=== PATIENT | male | born 1930 | race Caucasian/White ===

== ENCOUNTER 2017-02-04 12:42 | Inpatient (IN) | payer MEDICARE, OTHER ==
--- NOTE | ~2017-02-04 | DS ---
Discharge Summary [address] [place]. [address] NAME: ANITA FITZPATRICK : 30 STATUS : DIS IN PAT#: [id number] AGE: 86 ADM/REG DATE : 02/04/17 MR#: [id number] REPORT SERV DATE: 02/08/17 DICTATED BY: DATE: REPORT STATUS : Draft TRANSCRIBED BY: MODL DATE: 02/07/17 ADMISSION DATE: 02/04/2017 DISCHARGE DATE: 02/07/2017 DISCHARGE DIAGNOSES: 1. Neutropenic fever, resolved. 2. Urinary tract infection Escherichia coli. 3. Chronic nausea. 4. Chronic kidney disease, stage 3. 5. Abnormal chest x-ray. 6. Pancytopenia. 7. Large cell lymphoma. 8. Poor appetite. CONSULTATIONS: Jorge L Rowland M.D., [facility]. PERTINENT TESTS AND PROCEDURES: 1. Chest x-ray, 02/04/2017. Impression: Heart borderline in size. Peripheral infiltrate in the right upper lobe. Left lung clear. Torturous thoracic aorta. Pulmonary vessels normal. Impression: Acute infiltrate involving right lung. 2. Chest x-ray, 02/07/2017. Impression: Mild improvement in patchy consolidation, periphery of the right mid lung. Mild bibasilar atelectasis. Trace right pleural effusion expected. 3. Blood cultures x2 sites obtained on 02/04/2017, final result: One positive blood culture of two collected. Growth of Staph species ag negative, probable contamination. No sensitivity performed. 4. Urinalysis, urine collected on 02/04/2017. Result: Small leukocyte vinay, 1 red blood cell, 29 white blood cells, less than 1 epithelial squamous cell, rare bacteria. Urine culture, final result: Greater than 100,000 colonies of E. coli. 5. Hemoccult negative. CHIEF COMPLAINT UPON ADMISSION: Fever, nausea, and malaise. HOSPITAL COURSE: Please refer to history and physical dated 02/04/[address] Singh Valle for details pertaining to the patient's initial presentation upon admission and health history. The patient is an 86-year-old male, who is under the outpatient care of Dr. Mccord at [facility] for management of large cell lymphoma. The patient presented to the [facility] on 02/04/2017 for blood transfusion. Prior to transfusion the patient was noted to have a fever of 101 degrees Fahrenheit. Oncology was notified and the patient was referred to [facility] for direct admission. The patient was admitted for neutropenic fever of uncertain etiology, and acute on chronic anemia with history of pancytopenia requiring routine transfusion. 1. Neutropenic fever. Diagnostic workup included urinalysis and reflex culture which Discharge Summary [address] [place]. [address] NAME: ANITA FITZPATRICK : 30 STATUS : DIS IN PAT#: [id number] AGE: 86 ADM/REG DATE : 02/04/17 MR#: [id number] REPORT SERV DATE: 02/08/17 DICTATED BY: DATE: REPORT STATUS : Draft TRANSCRIBED BY: MODL DATE: 02/07/17 indicated UTI greater than 100,000 colonies of E. coli. The patient also had an abnormal chest x-ray that indicated an acute infiltrate right upper lobe. The patient was started on cefepime upon admission and then transitioned to cefadroxil 500 mg p.o. twice daily to treat urinary tract infection. The patient has remained afebrile since 02/04/2017. Absolute neutrophil count is now 550. The patient will continue cefadroxil 500 mg p.o. twice daily through 02/14/2017 to complete total 10-day antibiotic therapy. 2. Urinary tract infection. The patient have chronic urinary frequencies secondary to history of prostate cancer. The patient has denied dysuria or hematuria throughout admission. The patient will continue cefadroxil x8 days to complete a total 10-day course of antibiotic therapy. The patient was instructed on signs and symptoms of C. diff diarrhea and was educated to contact his provider immediately for any signs or symptoms of inability to tolerate antibiotics. 3. Abnormal chest x-ray. Upon admission, the patient's chest x-ray indicated acute infiltrate right upper lobe. The patient's procalcitonin was normal at 0.14 and the patient had no complaints of cough, wheeze, or shortness of breath. The patient recalls a choking incident while taking medications two to three weeks ago. Repeat x- ray on day of discharge reported mild improvement in patchy consolidation periphery of right mid lung. Antibiotic coverage was not extended to cover infiltrate as the patient is completely asymptomatic and chest x-ray shows improvement. 4. Chronic nausea, exact etiology is unclear. The patient has suffered from chronic nausea that is worse in the a.m. for over one month. H. pylori stool test is pending. The results should be available in approximately 48 hours. JEANNIE Duarte's office was alerted to watch for H. pylori test results. The patient has followup with Dr. Polanco in the morning. Home Zofran was increased from q.12 hours to q.6 hours p.r.n. 5. Chronic kidney disease, stage 3. The patient has mild metabolic acidosis and received sodium bicarb p.o. during this admission. Baseline creatinine is between 1.9 and 2.0. Yesterday, there was a very mild increase in creatinine to 2.03. The patient responded well to 500 mL normal saline at 125 mL/h x1 dose. 6. Pancytopenia, this is secondary to large cell lymphoma. The patient is transfusion dependent. Upon admission, the patient's hemoglobin was found to be 5.8, status post transfusion hemoglobin has continued to trend upward and is 8.5 on day of discharge. The patient will continue to follow with Dr. Mccord for routine transfusions. 7. Large cell lymphoma. The patient received supportive care only to include routine transfusions. Follow up with Dr. Cristino Mccord. 8. Poor appetite, this is likely secondary to chronic nausea that has been present for over one month. The patient is to follow up with JEANNIE Duarte, tomorrow. Oncology placed the patient on trial of steroid, prednisone 5 mg every a.m. as appetite stimulant. The patient will continue this medication for one week and follow up with Dr. Mccord. DISCHARGE CONDITION: At the time of discharge, the patient is hemodynamically stable. DISCHARGE DIET: Low-sodium 4 g diet. DISCHARGE MEDICATIONS: 1. Halfprin 81 mg tablet p.o. daily. Discharge Summary [address] [address] NAME: ANITA FITZPATRICK : 30 STATUS : DIS IN PAT#: [id number] AGE: 86 ADM/REG DATE : 02/04/17 MR#: [id number] REPORT SERV DATE: 02/08/17 DICTATED BY: DATE: REPORT STATUS : Draft TRANSCRIBED BY: MODL DATE: 02/07/17 2. Tums 500 mg tablet two tablets p.o. at bedtime. 3. Cefadroxil 500 mg tablet p.o. twice daily to treat UTI E. coli. The patient was instructed to monitor closely for signs and symptoms of C. diff diarrhea. 4. Cardizem 30 mg tablet p.o. daily at 0900 hours, 1600 hours, and 2100 hours. 5. Lexapro 20 mg tablet p.o. every morning. 6. Pepcid 20 mg tablet p.o. twice daily. 7. Protonix 40 mg tablet p.o. with breakfast. The patient was educated to discuss medication with GI doctor to see if it could possibly be contributing to chronic nausea. 8. Flomax 0.4 mg tablet p.o. daily. 9. Valtrex 500 mg tablet p.o. daily at 0900 hours and 1700 hours. 10.Ambien 5 mg tablet p.o. at bedtime. 11.Deltasone 5 mg tablet p.o. daily with breakfast x1 week. 12.Tylenol 325 mg tablet p.o. every 4 hours as needed. 13.Colace 100 mg tablet p.o. twice daily as needed. 14.Imodium 2 mg caplet, 4 mg every 8 hours as needed for diarrhea. 15.Zofran 4 mg to 8 mg p.o. every 6 hours as needed. 16.Phenergan 25 mg tablet every 6 hours as needed. Hold for sedation. 17.Senokot two tablets p.o. daily at bedtime as needed. 18.Ultram 50 mg tablet p.o. every 6 hours as needed. 19.Super B complex one tablet p.o. daily. 20.Melatonin 5 mg p.o. daily. 21.MiraLAX 17 g p.o. daily. Hold for diarrhea. DISCHARGE INSTRUCTIONS: 1. Follow up with Dr. Cristino Mccord on 02/15/2017. 2. Follow up with Dr. Polanco GI, on 02/08/2017. The patient was educated to monitor for signs and symptoms of diarrhea while on antibiotic and to report any change in stool to provider immediately. The patient was also instructed to return to the emergency department for any acute onset of fever 100.4 degrees Fahrenheit or greater lasting more than one hour, intractable nausea with uncontrolled vomiting, acute onset of uncontrolled diarrhea, or any other concerns that are deviations from his baseline health status at the time of this discharge. PRIMARY CARE PROVIDER: Gui Tyler, physician actuarial assistant at [facility]. PRIMARY ONCOLOGIST: Cristino Mccord M.D. PRIMARY LAMP DECORATOR: Singh Polanco M.D. [facility]/ROSHNI Macie Bailey Discharge Summary [address] [address] NAME: ANITA FITZPATRICK : 30 STATUS : DIS IN PAT#: [id number] AGE: 86 ADM/REG DATE : 02/04/17 MR#: [id number] REPORT SERV DATE: 02/08/17 DICTATED BY: DATE: REPORT STATUS : Draft TRANSCRIBED BY: ROSHNI DATE: 02/07/17 ANGELICA Ferrer / [id number] CC: MD Gui Del Cid II, Pura Hector IV, M.D.
[~2017-02-04 12:42] MED LIST: AMB5 PO; ANDERSON PO; ASAB PO; B121000P IM; BIST PO; CARD30 PO; CARD60 PO; CARDU4 PO; CELEXA20 PO; DSS PO; DURICEF PO; FISH-EPA1000 MG PO; FLOMAX4 PO; FLORASTOR250 MG PO; HALF81 PO; HYDROCORT2.5 % EX; KLOR-CON M1010 MEQ PO; L-LYSINE500 M1 PO; L20 PO; L40 PO; LEXAPRO20 PO; MAGIC MOUTH WASH PO; MAGNESIUM PO; MELATONIN5 M1 PO; MINOCIN100 PO; MIRALAXPKT PO; MTX2.5 PO; P10 PO; PEP20 PO; PEPTO BISMOL262 MG PO; PR25 PO; PRAVAC PO; PRAVACHOL40 MG PO; PRILO PO; PROBIOTIC PO; PROTONIX PO; REM15 PO; SUPER B COMP PO; T PO; TUMSROLL PO; ULTRAM50 PO; VALTREX5 PO; VITAMIN B-121000 MC1 SL; VYTORIN 10/40 T1 TAB PO; XANAX XR1 MG PO; ZESTORETIC1 TA1 PO; ZINC LOZENGES MT; ZOCOR40 PO; ZOFRANODT8 PO
[2017-02-05 06:23] LABS: BASOPHILS 0 %; EOSINOPHILS 0 %; HEMATOCRIT 21.5 % (40.0-51.0); HEMOGLOBIN 7.6 g/dL (13.6-17.8); LYMPHOCYTES 47.5 %; LYMPHOCYTES ABSOLUTE 1.55 10/3/uL (0.67-4.30); MEAN CORPUS HGB CONC 35.3 g/dL (32.0-36.0); MEAN CORPUSCULAR HEMOGLOB 32.1 pg (26.0-34.0); MEAN CORPUSCULAR VOLUME 90.7 fL (80-100); MEAN PLATELET VOLUME 9.2 fL (9.2-13.0); MONOCYTES 13.2 %; MONOCYTES ABSOLUTE 0.43 10/3/uL (0.21-1.20); NEUTROPHILS 39.3 %; NEUTROPHILS ABSOLUTE 1.28 10/3/uL (2.02-8.40); PLATELET COUNT 148 10/3/uL (150-400); RED CELL COUNT 2.37 10/6/uL (4.7-6.1); WHITE BLOOD CELLS 3.3 10/3/uL (4.5-10.5)
[2017-02-05 06:31] LABS: MANUAL DIFF NO %
[2017-02-05 06:31] LABS: BUN (BLOOD UREA NITROGEN) 34 MG/DL (6-23); CALCIUM, SERUM 7.7 MG/DL (8.5-10.4); CHLORIDE, SERUM 113 MMOL/L (96-112); CO2 (CARBON DIOXIDE) 19 MMOL/L (24-34); CREATININE 1.96 MG/DL (0.70-1.30); GFR AFRICAN AMERICAN 35 ML/MIN (>=60); GFR NON AFRICAN AMERICAN 30 ML/MIN (>=60); GLUCOSE, SERUM 109 MG/DL (60-99); POTASSIUM, SERUM 3.9 MMOL/L (3.5-5.3); SODIUM, SERUM 142 MMOL/L (135-148)
[2017-02-06 06:20] LABS: HEMATOCRIT 23.5 % (40.0-51.0); HEMOGLOBIN 8.3 g/dL (13.6-17.8); MEAN CORPUS HGB CONC 35.3 g/dL (32.0-36.0); MEAN CORPUSCULAR VOLUME 90.7 fL (80-100); MEAN PLATELET VOLUME 9.2 fL (9.2-13.0); PLATELET COUNT 139 10/3/uL (150-400); RBC DISTRIBUTION WIDTH 21.6 % (12.0-16.0); RED CELL COUNT 2.59 10/6/uL (4.7-6.1); WHITE BLOOD CELLS 2.6 10/3/uL (4.5-10.5)
[2017-02-06 06:23] LABS: MANUAL DIFF YES %
[2017-02-06 06:34] LABS: BUN (BLOOD UREA NITROGEN) 38 MG/DL (6-23); CALCIUM, SERUM 7.6 MG/DL (8.5-10.4); CHLORIDE, SERUM 113 MMOL/L (96-112); CO2 (CARBON DIOXIDE) 20 MMOL/L (24-34); CREATININE 2.03 MG/DL (0.70-1.30); GFR AFRICAN AMERICAN 33 ML/MIN (>=60); GFR NON AFRICAN AMERICAN 29 ML/MIN (>=60); POTASSIUM, SERUM 4.1 MMOL/L (3.5-5.3); SODIUM, SERUM 143 MMOL/L (135-148)
[2017-02-06 06:35] LABS: GLUCOSE, SERUM 84 MG/DL (60-99)
[2017-02-06 06:48] LABS: ANISOCYTOSIS 1+ (5-10/OIF) (0-5/OIF); LYMPHOCYTES 59 %; LYMPHOCYTES ABSOLUTE (CALC) 1.53 10/3/uL (0.67-4.30); MONOCYTES 12 %; MONOCYTES ABSOLUTE (CALC) 0.31 10/3/uL (0.21-1.20); NEUTROPHILS ABSOLUTE (CALC) 0.75 10/3/uL (2.02-8.40); PLATELET ESTIMATE SLT DEC (ADEQUATE); SEGMENTED NEUTROPHIL (0) 29 %; TOTAL NUCLEATED CELLS 100
[2017-02-07 07:05] LABS: HEMATOCRIT 25.1 % (40.0-51.0); HEMOGLOBIN 8.5 g/dL (13.6-17.8); MEAN CORPUS HGB CONC 33.9 g/dL (32.0-36.0); MEAN CORPUSCULAR HEMOGLOB 31.4 pg (26.0-34.0); MEAN CORPUSCULAR VOLUME 92.6 fL (80-100); PLATELET COUNT 155 10/3/uL (150-400); RBC DISTRIBUTION WIDTH 21.5 % (12.0-16.0); RED CELL COUNT 2.71 10/6/uL (4.7-6.1)
[2017-02-07 07:08] LABS: WHITE BLOOD CELLS 2.4 10/3/uL (4.5-10.5)
[2017-02-07 07:09] LABS: MANUAL DIFF YES %
[2017-02-07 07:17] LABS: BUN (BLOOD UREA NITROGEN) 35 MG/DL (6-23); CALCIUM, SERUM 8.1 MG/DL (8.5-10.4); CHLORIDE, SERUM 115 MMOL/L (96-112); CO2 (CARBON DIOXIDE) 21 MMOL/L (24-34); CREATININE 1.83 MG/DL (0.70-1.30); GFR AFRICAN AMERICAN 38 ML/MIN (>=60); GFR NON AFRICAN AMERICAN 33 ML/MIN (>=60); GLUCOSE, SERUM 86 MG/DL (60-99); POTASSIUM, SERUM 4.4 MMOL/L (3.5-5.3); SODIUM, SERUM 144 MMOL/L (135-148)
[2017-02-07 07:37] LABS: BAND NEUTROPHILS 6 %; BASOPHILS 1 %; BASOPHILS ABSOLUTE (CALC) 0.02 10/3/uL (0.0-0.16); LYMPHOCYTES 72 %; LYMPHOCYTES ABSOLUTE (CALC) 1.73 10/3/uL (0.67-4.30); MONOCYTES 4 %; NEUTROPHILS ABSOLUTE (CALC) 0.55 10/3/uL (2.02-8.40); PLATELET ESTIMATE ADQ (ADEQUATE); SEGMENTED NEUTROPHIL (0) 17 %; TOTAL NUCLEATED CELLS 100
[2017-02-07 07:38] LABS: ANISOCYTOSIS 1+ (5-10/OIF) (0-5/OIF); MACROCYTES 1+ (5-10/OIF) (0-5/OIF)
[2017-02-07] MEDS ORDERED: MIRALAX POWDER1 PKT PO (15:45)
[2017-02-07] MEDS ORDERED: P5 PO (15:46)
[2017-02-07] MEDS ORDERED: CEFACLOR ER500 MG PO (15:46)
== END 2017-02-07 16:06 | disposition home or self-care (01) | DRG 690 ==
LOC: 4EA 12:42
PROVIDERS: Internal Medicine; Nurse Practitioner Family
PROC: 30233N1 Transfusion of Nonautologous Red Blood Cells into Peripheral Vein, Percutaneous Approach (ICD-10-PCS; 2017-02-03)
PROC: 30233N1 Transfusion of Nonautologous Red Blood Cells into Peripheral Vein, Percutaneous Approach (ICD-10-PCS; principal; 2017-02-04)
DX: N39.0 Urinary tract infection, site not specified (principal); E87.2 Acidosis; C91.Z0 Other lymphoid leukemia not having achieved remission; D70.9 Neutropenia, unspecified; N18.3 Chronic kidney disease, stage 3 (moderate); B96.20 Unspecified Escherichia coli [E. coli] as the cause of diseases classified elsewhere; D63.1 Anemia in chronic kidney disease; Z51.5 Encounter for palliative care; N40.0 Benign prostatic hyperplasia without lower urinary tract symptoms; F32.9 Major depressive disorder, single episode, unspecified; F41.9 Anxiety disorder, unspecified; I12.9 Hypertensive chronic kidney disease with stage 1 through stage 4 chronic kidney disease, or unspecified chronic kidney disease; F17.210 Nicotine dependence, cigarettes, uncomplicated; Z79.82 Long term (current) use of aspirin
CPT/HCPCS: 36415; 36430; 71010; 80048; 80053; 81001; 82272; 83615; 83735; 84145; 85025; 85610; 85730; 86850; 86900; 86901; 86920; 87040; 87077; 87086; 87186; 87338; 87493; 87493-59; 96367; 96375; 99284; A9270-GY; G0378; J0692; J0895; J1940; J2405; P9040

== ENCOUNTER 2017-02-20 20:34 | Inpatient (IN) | payer MEDICARE, OTHER ==
--- NOTE | ~2017-02-20 | DS ---
Discharge Summary [id number] [place]. [address] NAME: ANITA FITZPATRICK : 30 STATUS : DIS IN PAT#: [id number] AGE: 86 ADM/REG DATE : 02/21/17 MR#: [id number] REPORT SERV DATE: 02/25/17 DICTATED BY: JR. GARCIA WILLIAM JOHN DATE: 02/24/17 REPORT STATUS : Draft TRANSCRIBED BY: MODBenja DATE: 02/24/17 ADMISSION DATE: 02/21/2017 DISCHARGE DATE: 02/24/2017 DISCHARGE DIAGNOSES: 1. Mild hypernatremia. 2. Intermittent bradycardia, evaluated by Cardiology. 3. Acute on chronic symptomatic anemia. 4. Hyperkalemia. 5. Hypokalemia. 6. Acute kidney injury. 7. Chronic kidney disease, stage III. 8. Large cell lymphoma. 9. Chronic transfusion-dependent pancytopenia. 10.Chronic steroid use. 11.Neutropenia. OPERATIONS/PROCEDURES AND TREATMENTS: Include: 1. Chest x-ray done 02/20/2017 which showed continued opacity in peripheral aspect of the right lung with bibasilar atelectasis. 2. Echocardiogram done 02/22/2017 which showed normal left ventricular systolic function with ejection fraction of 55% with severe diastolic dysfunction and right ventricle which was mildly enlarged with mildly decreased systolic function. There was mild mitral and aortic regurgitation and a dilated left atrium. 3. Blood cultures x2 done 02/20/2017 were sterile. 4. Occult blood done 02/21/2017 was negative. DISCHARGE MEDICATIONS: Include: 1. Aspirin 81 mg orally daily. 2. Calcium carbonate 1000 mg orally at bedtime. 3. Lexapro 20 mg orally daily. 4. Pepcid 20 mg orally daily. 5. Prednisone 5 mg orally before breakfast. 6. Melatonin 5 mg orally daily. 7. Remeron 45 mg orally daily. 8. Protonix 40 mg orally daily. 9. Flomax 0.4 mg orally daily. 10.Ambien 5 mg orally at bedtime. 11.Vitamin B complex daily. 12.Tylenol 325 q.4h p.r.n. 13.Colace as needed. 14.[place] 5/325 q.8 hours p.r.n. 15.Zofran 4 mg as needed. 16.Pepto-Bismol as needed. 17.Tramadol 50 q.6h p.r.n. 18.Hydrocortisone 20 mg orally twice a day for two days, then daily for two days, then Discharge Summary [address] [address] NAME: ANITA FITZPATRICK : 30 STATUS : DIS IN PAT#: [id number] AGE: 86 ADM/REG DATE : 02/21/17 MR#: [id number] REPORT SERV DATE: 02/25/17 DICTATED BY: JR. GARCIA WILLIAM JOHN DATE: 02/24/17 REPORT STATUS : Draft TRANSCRIBED BY: ROSHNI DATE: 02/24/17 every other day for four days. HOSPITAL COURSE: The patient was an 86-year-old white male with a history of large-cell lymphoma, followed by Dr. Mccord, currently not on treatment who presented to the emergency room on 02/20/2017 with complaint of chills and nausea. The patient had recently been admitted to the Hospitalist Service at that time. He had neutropenic fever, was found to have Escherichia coli, urinary tract infection, also required blood transfusion for symptomatic anemia. He was discharged on cefadroxil and remained in his usual state of health until the afternoon of presentation when he experienced acute onset of chills with nausea for a few hours. For complete details of the admission history, please see Dr. Clark's quite excellent dictated history and physical. On initial exam, his temperature was 98.5, heart rate 78, respiratory rate of 18, and blood pressure is 117/42. Exam was largely unremarkable. Laboratory showed white count of 2.8, hemoglobin 6.5, platelets 188 with an absolute neutrophil count of 1260. His potassium was elevated at 6.3, BUN was 37, creatinine was 1.8. Lactic acid was 0.6. Urinalysis had no pyuria. Initial EKG showed right bundle branch block without evidence of acute T-wave or QRS lengthening. The patient was admitted to the hospital for hyperkalemia, anemia, and bradycardia. Regarding the patient's acute symptomatic anemia, he was transfused with a total of 4 units of packed red blood cells. The patient carries a history of large cell lymphoma with chronic pancytopenia, which is transfusion dependent. There was no obvious bleeding. He did have occult blood that was negative and the patient was followed by Dr. Mccord during the hospitalization. No further workup regarding the anemia was undertaken. Regarding the patient's intermittent bradycardia, initially patient had heart rate down into the 30s and 40s. At that time, he was on diltiazem and had hyperkalemia. The potassium was actually overcorrected, at which point, he had hypokalemia, and the patient continued to have intermittent bradycardia with 2 to 3 second pauses. He was evaluated by Cardiology. He had an echocardiogram, which is detailed above. He was initially felt to be a pacemaker candidate; however, with control of his potassium level as well as off rate controlling medicines, his bradycardia was significantly better and was completely asymptomatic and it was felt the patient would not get a pacemaker at that time. Regarding the hyper and hypokalemia, the patient got Kayexalate when his potassium was high and he got potassium when it was low with good result. Regarding concern for infection, the patient never had convincing evidence of infection other than symptomatic. He was initially placed on cefepime. This was discontinued, and he had no evidence of infection. Regarding the patient's steroid dependency, he was placed on stress dose steroids. This was weaned down. He will continue an oral taper at discharge. Discharge Summary [id number] [place]. [address] NAME: ANITA FITZPATRICK : 30 STATUS : DIS IN PAT#: [id number] AGE: 86 ADM/REG DATE : 02/21/17 MR#: [id number] REPORT SERV DATE: 02/25/17 DICTATED BY: JR. GARCIA WILLIAM JOHN DATE: 02/24/17 REPORT STATUS : Draft TRANSCRIBED BY: ROSHNI DATE: 02/24/17 The patient will be discharged home today 02/24/2017 in good condition. He will follow up with his primary care provider, Dr. Gui Tyler, in one to two weeks. We will follow up with Dr. Mccord of [facility] at the next available appointment. DISCHARGE DIET: Will be a renal diet. ACTIVITY: As tolerated. For discharge exam and laboratory, please see daily progress note. This discharge took 38 minutes for patient encounter, coordination of care, and documentation. VERNA/ROSHNI Isidoro Garcia Jr, MD / [id number] CC: Isidoro Garcia Jr, MD Gregory Joyner
--- NOTE | ~2017-02-20 | CN ---
Consultation Report [facility] [address] [place]. [address] NAME: ANITA SALMON : 30 STATUS : ADM IN PAT#: [id number] AGE: 86 ADM/REG DATE : 02/21/17 MR#: [id number] REPORT SERV DATE: 02/23/17 DICTATED BY: GUI RUIZ DATE: 02/23/17 REPORT STATUS : Draft TRANSCRIBED BY: MODL DATE: 02/23/17 ELECTROPHYSIOLOGY CONSULTATION DATE OF CONSULTATION: INDICATIONS: Consider pacemaker. HISTORY OF PRESENT ILLNESS: Anita Salmon is an 86-year-old man with large cell lymphoma, not undergoing treatment. He is followed by Dr. Cristino Mccord. He was admitted with nausea, vomiting, and fevers. He has neutropenia. On presentation, he did have some sinus bradycardia with heart rates to around 30 beats per minute. He also had an elevation of his potassium at 6.3 and had been receiving diltiazem. Electrophysiology is consulted to consider a pacemaker placement. The patient has had stabilization of his heart rates over the last 12 hours or so after his potassium has come down and his diltiazem is washing out of his system. Heart rates are currently in the low 50s. On questioning, he denies lightheadedness, dizziness, syncope or presyncope, and has no other obvious focal complaints. He has some ongoing malaise, which likely may well be related to his underlying medical illnesses. PAST MEDICAL HISTORY: Large cell lymphoma, chronic pancytopenia, chronic kidney disease, prostate cancer, coronary artery disease, hypertension, reflux disease, depression and anxiety. PRESENT MEDICATIONS: Aspirin, calcium, Maxipime, Lexapro, Pepcid, subcu heparin, Solu- Cortef, melatonin, Remeron, Protonix, Flomax, Stresstabs, and Ambien. ALLERGIES: ANTIHISTAMINES. SOCIAL HISTORY: No tobacco. No alcohol. FAMILY HISTORY: Notable for some cardiac disease. REVIEW OF SYSTEMS: As per the HPI. Otherwise, all other review of systems negative. PHYSICAL EXAMINATION: VITAL SIGNS: Blood pressure of 151/71, pulse is 58, respiratory rate is 18, temperature 98.2. GENERAL: Appears stated age, no distress. EYES: Sclerae anicteric. No arcus senilis. MOUTH: Oral mucosa moist, lips acyanotic. NECK: Jugular venous pressure normal. No carotid bruits. LUNGS: Clear to auscultation bilaterally, normal inspiratory effort. CARDIAC: Irregular rhythm with a 2/6 systolic ejection murmur. Consultation Report [address] [place]. [address] NAME: ANITA SALMON : 30 STATUS : ADM IN [facility]#: [id number] AGE: 86 ADM/REG DATE : 02/21/17 MR#: [id number] REPORT SERV DATE: 02/23/17 DICTATED BY: GUI RUIZ DATE: 02/23/17 REPORT STATUS : Draft TRANSCRIBED BY: ROSHNI DATE: 02/23/17 ABDOMEN: Soft, nondistended, nontender. EXTREMITIES: No edema. SKIN: Warm and dry. NEURO/PSYCH: Alert and oriented, nonfocal, mood appropriate. DATA: Telemetry is currently sinus rhythm. ECG from 2 a.m. yesterday morning is sinus bradycardia, 38 beats per minute with a right bundle-branch block, conduction pattern. Potassium today 3.3, it was 6.3 on presentation. Creatinine 1.5. White count is 8. Troponin negative. IMPRESSIONS: Sinus node dysfunction in the context of treatment with diltiazem and abnormal potassium. Rates overall, on my review of the telemetry strips, appear to be improved. He has no history of syncope or presyncope. He has an abnormal procalcitonin and a low white count, and he is clearly of increased risk for infection related to invasive procedures. Overall, it appears the patient's rates are better. I would recommend observant management at the present time and hopefully avoid the pacemaker in this gentleman unless it is absolutely required. EM/ROSHNI Gui Ruiz M.D. / [id number] CC: Isidoro Garcia Jr, MD Gregory Joyner, NP
--- NOTE | ~2017-02-20 | HP ---
History And Physical [place] [id number] [facility] [place]. [address] NAME: ANITA [place] : 30 STATUS : ADM Noemi PAT#: [id number] AGE: 86 ADM/REG DATE : 02/20/17 MR#: [id number] REPORT SERV DATE: 02/21/17 DICTATED BY: JORGE DE OLIVEIRA DATE: 02/21/17 REPORT STATUS : Draft TRANSCRIBED BY: MODBenja DATE: 02/21/17 DATE OF ADMISSION: 02/20/2017 POINT OF ENTRY: [facility] Emergency Department. PRIMARY ONCOLOGIST/CONTRACT AGENT: Cristino Mccord M.D. CHIEF COMPLAINT: Chills and nausea. HISTORY OF PRESENT ILLNESS: Mr. 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 The patient was recently admitted to the Hospitalist Service in late January for neutropenic fever and found at that time to have evidence of an E coli urinary tract infection. He also required a blood transfusion at that time for symptomatic anemia. He was discharged on extended course of cefadroxil to treat his E coli urinary tract infection. According to pharmacy review of the medication administration records it appears the patient has been on his cefadroxil for few days longer than actually was prescribed. The patient states he was feeling well in his usual state of health until sometime this afternoon shortly after lunch when he experienced the acute onset of chills and some nausea. The patient states that his chills continued on for quite a few hours. He states that his temperature at that time was measured to be 99.0 degrees Fahrenheit. He otherwise denied any chest pain, palpitations, shortness of breath, cough, sputum production, abdominal pain, diarrhea, constipation, dysuria, melena, hematochezia, or hemoptysis. He does state some chronic lower extremity edema as well as the above-mentioned nausea as well as frequent urination which is unchanged which he blames on his history of prostate cancer and BPH. Initial evaluation in the emergency department notable for stable vital signs. Temperature was 98.5 degrees Fahrenheit. White count was noted to be 2800. ANC was almost 1300. Labs were otherwise notable for potassium of 6.2 with a bicarb of 22. Urinalysis did have positive nitrites and 5 white blood cells per high field. He was started on some IV fluids as well as 2 g of IV cefepime for presumed neutropenic fever. Hemoglobin was also noted to be 6.5, and an order for 2 unit blood transfusion was placed. PREVIOUS MEDICAL HISTORY: 1. 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 2. 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 3. Chronic kidney disease, stage 3, baseline creatinine approximately 1.8 to 2.0. 4. History of prostate cancer status post hormonal treatment. 5. Coronary artery disease. 6. Hypertension. 7. Gastroesophageal reflux disease. History And Physical [address] [address] NAME: ANITA SAL[place] : 30 STATUS : ADM Noemi PAT#: [id number] AGE: 86 ADM/REG DATE : 02/20/17 MR#: [id number] REPORT SERV DATE: 02/21/17 DICTATED BY: JORGE DE OLIVEIRA DATE: 02/21/17 REPORT STATUS : Draft TRANSCRIBED BY: ROSHNI DATE: 02/21/17 8. Depression and anxiety. SURGICAL HISTORY: 1. Bilateral total knee. 2. Cholecystectomy. 3. Hernia repair. ALLERGIES: NO KNOWN DRUG ALLERGIES. HOME MEDICATIONS: 1. Tylenol 325 mg q.4 hours p.r.n. 2. Aspirin 81 mg daily. 3. Vitamin B complex one tablet daily. 4. Pepto-Bismol 260 mg q.i.d. p.r.n. 5. Calcium carbonate 1000 mg q.h.s. 6. Cefadroxil 500 mg b.i.d. 7. Diltiazem 30 mg t.i.d. 8. Lomotil 2.5 mg b.i.d. p.r.n. 9. Lexapro 20 mg daily. 10.Pepcid 20 mg q.h.s. 11.[place] 5/325 mg one tablet q.8 hours p.r.n. 12.Melatonin 5 mg q.h.s. 13.Minocycline 100 mg b.i.d. p.r.n. 14.Remeron 45 mg q.h.s. 15.Zofran 4 mg daily p.r.n. 16.Protonix 40 mg daily. 17.Prednisone 5 mg daily. Therapies actually completed. 18.Phenergan 25 mg q.6 hours p.r.n. 19.Flomax 0.4 mg daily. 20.Tramadol 50 mg q.6 hours. 21.Hyzp-ahb-ysogljp Cold-Eeze. 22.Ambien 5 mg q.h.s. SOCIAL HISTORY: Denies any tobacco, alcohol, or illicits. He is a long-term resident of [place]. FAMILY MEDICAL HISTORY: Mother with complications of gallbladder surgery. Father's history is unknown. Sibling with history of coronary artery disease. LABS AND IMAGIN. White count is 2.8, hemoglobin is 6.5, hematocrit is 19.3, and platelet count is 188. INR is 1.1. ANC is 1260. 2. Sodium is 138, potassium 6.3, chloride 109, carbon dioxide 22, BUN 37, creatinine 1.78, glucose is 112, calcium is 7.5, albumin is 2.8, protein 7.1, bilirubin is 0.5, ALT is 18, AST 13, alkaline phosphatase is 107. 3. Lactic acid is 0.6. 4. Urinalysis: Spec gravity is 1.011 hazy with positive nitrites with 5 white blood cells History And Physical [address] [address] NAME: ANITA SALMON : 30 STATUS : ADM oNemi PAT#: [id number] AGE: 86 ADM/REG DATE : 02/20/17 MR#: [id number] REPORT SERV DATE: 02/21/17 DICTATED BY: JORGE DE OLIVEIRA DATE: 02/21/17 REPORT STATUS : Draft TRANSCRIBED BY: MODL DATE: 02/21/17 per high-powered field. 5. Chest x-ray per my review shows no acute cardiopulmonary abnormality. 6. EKG per my review shows right bundle-branch block with left axis deviation, with heart rates in the 50s, but otherwise no evidence of any acute T-wave changes or QRS lengthening secondary to hyperkalemia. PHYSICAL EXAMINATION: VITAL SIGNS: Temperature is 98.5 degrees Fahrenheit, pulse is 78, respirations 18, saturating 98% on 2 L nasal cannula, blood pressure 117/42, on recheck it is now 116/40, heart rate of 75. GENERAL: The patient is awake and alert, in no acute distress. Resting comfortably in bed. He is a well-developed, well-nourished, elderly male. HEENT: Atraumatic and normocephalic. Moist mucous membranes. Pupils equal, round, reactive to light and accommodation. Extraocular eye movements intact. No scleral icterus. The patient does not have any evidence of mucositis at this time. Does have a very small subcentimeter chronic ulcer underneath his bottom lip. NECK: No jugular venous distention. No carotid bruits. CARDIAC: Regular rate and rhythm. No murmurs, rubs, or gallops. Normal S1, S2. LUNGS: Clear to auscultation bilaterally. No wheezes, rhonchi, or crackles. ABDOMEN: Soft, nontender, and nondistended. Good bowel sounds. No rebound, guarding, or rigidity. EXTREMITIES: Warm and perfused. No cyanosis or clubbing. Does have some trace to 1+ lower extremity edema. SKIN: Warm and dry. PSYCH: Affect appropriate. NEURO: Alert and oriented x3. Cranial nerves 2 through 12 grossly intact. Speech is normal. Gait not assessed. ASSESSMENT AND PLAN: Mr. Salmon is an 86-year-old gentleman, who presents with acute onset of chills and rigors, and found to have evidence of acute on chronic anemia as well as chronic leukopenia and evidence of hyperkalemia. PROBLEM LIST: 1. Acute on chronic anemia. 2. Hyperkalemia. 3. Chronic kidney disease, stage 3. 4. Leukopenia. 5. Concern for possible underlying infection. 6. Large cell lymphoma. PLAN: 1. Acute on chronic anemia. We will put an order to transfuse 2 units of packed red blood cells. Check occult stool; however, his occult stools in the recent past have all been negative, this is all likely secondary to the patient's underlying lymphoma. 2. Hyperkalemia. 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 We will check a urine anion gap to help delineate etiology. He has already received insulin glucose as well as an albuterol treatment. We will continue with IV fluid hydration, amp of sodium History And Physical [place] [address] [place]. [address] NAME: ANITA SALMON : 30 STATUS : ADM Noemi PAT#: [id number] AGE: 86 ADM/REG DATE : 02/20/17 MR#: [id number] REPORT SERV DATE: 02/21/17 DICTATED BY: JORGE DE OLIVEIRA DATE: 02/21/17 REPORT STATUS : Draft TRANSCRIBED BY: MODL DATE: 02/21/17 bicarb given his evidence of metabolic acidosis as well as some Kayexalate. Continue cardiac telemetry monitoring. 3. Leukopenia with concern for possible infection. The patient does not have any evidence of neutropenia at this time nor does he have any fevers; however, given the patient's reports of chills and rigors, there is obviously some concern for possible underlying infection. Chest x-ray was clear. Urinalysis did have positive nitrites as well as 5 red cells in the urine. Blood cultures have been obtained. Lactic acid was within normal limits. We will check a procalcitonin level, we will wait on the results of the blood cultures. We will continue empiric IV antibiotic administration at least overnight until blood cultures result as well as we are able to observe his fever curve. 4. Chronic kidney disease, stage 3. Appears to be within recent baseline. 5. DVT prophylaxis. Heparin subcu. CODE STATUS: The patient wishes to be full code. JCNoemí/ROSHNI Jorge De Oliveira MD / [id number] CC: Isidoro Garcia Jr, MD Gregory Joyner, NP Mark S Womack IV, M.D.
--- NOTE | ~2017-02-20 | CN ---
Consultation Report [facility] [address] [place]. [address] NAME: ANITA FITZPATRICK : 30 STATUS : ADM IN PAT#: [id number] AGE: 86 ADM/REG DATE : 02/21/17 MR#: [id number] REPORT SERV DATE: 02/22/17 DICTATED BY: CHIRAG CM DATE: 02/22/17 REPORT STATUS : Draft TRANSCRIBED BY: MODL DATE: 02/22/17 CARDIOLOGY CONSULT. DATE OF CONSULTATION: REFERRING PHYSICIAN: Isidoro Garcia Jr, MD REFERRING REASON: Sinus bradycardia of his pulses. HISTORY OF PRESENT ILLNESS: This is a pleasant 86-year-old gentleman, previously followed by Dr. Tez Herr most recently under the cardiology care of Dr. 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 Mccord in Oncology. He has prolonged hospitalization in January 2017 at [facility] for neutropenic fever. He reportedly has been on methotrexate before, but has not tolerated. He has a pancytopenia with frequent transfusions. He was admitted for chills and nausea from an assisted living where he resides. He has a poor functional performance status, walking with a walker. He denies any recent chest pain. He has a known coronary artery disease with last PCI to unknown vessel in 2002. He had history of preserved systolic function with EF 55% in 2012. On admission, he was found to be pancytopenic and is in the process getting transfusion. Initially, he had hyperkalemia with potassium 6.2 and creatinine 1.7. Of note, he has a chronic kidney disease. The patient was found to have sinus bradycardia in the low 40s. Of note, he has been on Cardizem at home. He denied any syncope, palpitation, or chest pain. He has some generalized weakness. He is a DNR and does not want any aggressive measures. Rest of review of systems is negative. PAST MEDICAL HISTORY: 1. Granular lymphoma, now undergoing palliative treatment by Dr. Mccord. 2. Coronary artery disease with last PCI in 2002, currently stable. 3. Hypertension. 4. Chronic kidney disease. 5. Remote history of preserved systolic function with EF of 55% in 2012. 6. Pancytopenia requiring frequent transfusions. ALLERGIES: NO KNOWN DRUG ALLERGIES. SOCIAL HISTORY: The patient resides in the nursing facility. He walks with a walker. He lives independently. Denies smoking, drinking alcohol, or using street drugs. FAMILY HISTORY: Negative for sudden cardiac or premature coronary artery disease in the family. HOME MEDICATIONS: Tylenol p.r.n., aspirin 81 mg once a day, Pepto-Bismol, Tums, Duricef 500 mg twice a day, Cardizem 30 mg three times a day, Lomotil p.r.n., Lexapro 20 mg once a day, Pepcid 20 mg once a day, hydrocodone 5/325 mg every 8 hours for pain, melatonin 5 mg once a Consultation Report [facility] [address] [facility] [place]. [address] NAME: ANITA FITZPATRICK : 30 STATUS : ADM IN [facility]#: [id number] AGE: 86 ADM/REG DATE : 02/21/17 MR#: [id number] REPORT SERV DATE: 02/22/17 DICTATED BY: CHIRAG CM DATE: 02/22/17 REPORT STATUS : Draft TRANSCRIBED BY: ROSHNI DATE: 02/22/17 day, Remeron 45 mg at bedtime, Zofran p.r.n., Protonix 40 mg once a day, prednisone 5 mg once a day, Phenergan as needed, Flomax 0.4 mg once a day, Ultram, and Ambien as needed. PHYSICAL EXAMINATION: GENERAL: In no acute distress. The patient is comfortable and sitting in bed, he is receiving transfusion. VITAL SIGNS: Blood pressure 150/61, heart rate 73, regular. HEENT: Pupils reactive to light and accommodation. Moist mucosa membrane. NECK: No JVD. Normal carotid upstroke. No carotid bruits. LUNGS: Decreased breath sounds, bibasilar, but no crackles. COR: Normal S1, S2. No S3 or S4. No significant rub or murmurs. ABDOMEN: Obese, distended, and nontender. EXT: Lower extremity, decreased pedal pulses bilaterally, but no edema. SKIN: Warm with normal turgor. MS: No kyphosis. NEURO/PSY: Alert and oriented. Nonfocal. LABORATORY DATA: Initial hemoglobin 6.5, now 7.2 after the 2 units of red blood cells. Platelet count 180,000. Leukopenia 2.8, now decreasing to 1.4. Creatinine in 1.78 now decreasing to 1.65, with BUN 37, and potassium initially was 6.2 now at 3.0. Electrocardiogram revealed sinus bradycardia 38 beats per minute with one PVC, nonspecific T wave changes. There has been several sinus pauses on the monitor up to 2.2 seconds, the largest one. The slowest heart rate has been during the night. Currently, his heart rate increased. ASSESSMENT/PLAN: 1. Chills and nausea in the setting of large granulomatous lymphoma, undergoing palliative treatment. 2. Recent neutropenic fever with severe pancytopenia requiring transfusion. 3. Sinus bradycardia. 4. Coronary artery disease, currently stable. The patient will be closely monitored on monitor bed. We will discontinue Cardizem, and replace his electrolytes, and plan for echocardiogram later today. Obviously, he will remain to have a profound sinus bradycardia. He may be candidate for pacemaker and fortunately, he is currently stable and asymptomatic. He is not even sure if this is something that he wants to have it and he was planning to discuss it with the family members later today. We will keep him n.p.o. after midnight for possible pacemaker placement tomorrow in case that he will continue to be bradycardic with sinus pauses. Dr. Cummings will see the patient in the morning. DNR status has been noted. JOSIAH/ROSHNI Chirag Johansen Consultation Report [address] [address] NAME: ANITA FITZPATRICK : 30 STATUS : ADM IN PAT#: [id number] AGE: 86 ADM/REG DATE : 02/21/17 MR#: [id number] REPORT SERV DATE: 02/22/17 DICTATED BY: CHIRAG CM DATE: 02/22/17 REPORT STATUS : Draft TRANSCRIBED BY: ROSHNI DATE: 02/22/17 Pura Cm / [id number] CC: Isidoro Garcia Jr, MD Gui Tyler NP
[~2017-02-20 20:34] MED LIST changes: +CEFACLOR ER500 MG PO; +MIRALAX POWDER1 PKT PO; +P5 PO
[2017-02-20] MEDS ORDERED: ASAB PO (22:18)
[2017-02-20 22:19] LABS: BASOPHILS 0.4 %; BASOPHILS ABSOLUTE 0.01 10/3/uL (0.0-0.16); EOSINOPHILS 0 %; ER CBC TAT 0 Hrs 09 Mins; IMMATURE GRANULOCYTES 0.4 %; IMMATURE GRANULOCYTES ABSOLUTE 0.01 10/3/uL (0.0-0.11); LYMPHOCYTES 39.9 %; LYMPHOCYTES ABSOLUTE 1.13 10/3/uL (0.67-4.30); MEAN CORPUS HGB CONC 33.7 g/dL (32.0-36.0); MEAN CORPUSCULAR HEMOGLOB 31.7 pg (26.0-34.0); MEAN CORPUSCULAR VOLUME 94.1 fL (80-100); MEAN PLATELET VOLUME 8.7 fL (9.2-13.0); MONOCYTES 14.8 %; MONOCYTES ABSOLUTE 0.42 10/3/uL (0.21-1.20); NEUTROPHILS 44.5 %; NEUTROPHILS ABSOLUTE 1.26 10/3/uL (2.02-8.40); PLATELET COUNT 188 10/3/uL (150-400); RBC DISTRIBUTION WIDTH 22.8 % (12.0-16.0); WHITE BLOOD CELLS 2.8 10/3/uL (4.5-10.5)
[2017-02-20] MEDS ORDERED: VITAMIN B PO (22:19)
[2017-02-20 22:20] LABS: HEMATOCRIT 19.3 % (40.0-51.0); HEMOGLOBIN 6.5 g/dL (13.6-17.8); RED CELL COUNT 2.05 10/6/uL (4.7-6.1)
[2017-02-20] MEDS ORDERED: DURICEF PO (22:20)
[2017-02-20 22:21] LABS: MANUAL DIFF NO %
[2017-02-20 22:23] LABS: ASCORBIC ACID (UR NOT ORDER) NEG (NEG); BILIRUBIN, URINE NEGATIVE (NEG); ER URINALYSIS TAT 0 Hrs 13 Mins; KETONE, URINE NEGATIVE (NEG); LEUKOCYTE ESTERASE(NOT OR NEG (NEG); NITRITE (URINE) POS (NEG); WBC (NOT ORDERED) (RFLEX) 5 (0-5)
[2017-02-20] MEDS ORDERED: PEP20 PO (22:29)
[2017-02-20] MEDS ORDERED: LEXAPRO20 PO (22:29)
[2017-02-20] MEDS ORDERED: P5 PO (22:29)
[2017-02-20] MEDS ORDERED: CARD30 PO (22:29)
[2017-02-20] MEDS ORDERED: MELATONIN5 M1 PO (22:30)
[2017-02-20] MEDS ORDERED: PROTONIX PO (22:31)
[2017-02-20] MEDS ORDERED: REMERON45 MG PO (22:31)
[2017-02-20] MEDS ORDERED: FLOMAX4 PO (22:32)
[2017-02-20] MEDS ORDERED: TUMSROLL PO (22:33)
[2017-02-20] MEDS ORDERED: T PO (22:33)
[2017-02-20] MEDS ORDERED: AMB5 PO (22:33)
[2017-02-20 22:34] LABS: A/G RATIO 0.7 (0.7-1.9); ALBUMIN 2.8 G/DL (3.5-5.0); ALKALINE PHOSPHATASE 107 U/L (45-117); BUN (BLOOD UREA NITROGEN) 37 MG/DL (6-23); CALCIUM, SERUM 7.5 MG/DL (8.5-10.4); CHLORIDE, SERUM 109 MMOL/L (96-112); CO2 (CARBON DIOXIDE) 22 MMOL/L (24-34); CREATININE 1.78 MG/DL (0.70-1.30); GFR AFRICAN AMERICAN 39 ML/MIN (>=60); GFR NON AFRICAN AMERICAN 34 ML/MIN (>=60); GLOBULIN 4.3 G/DL (2.5-4.1); SGOT(AST) 13 U/L (5-40); SGPT(ALT) 18 U/L (5-65); SODIUM, SERUM 138 MMOL/L (135-148); TOTAL BILIRUBIN 0.5 MG/DL (0-1.2); TOTAL PROTEIN 7.1 G/DL (6.0-8.5)
[2017-02-20] MEDS ORDERED: NORCO1 TA1 PO ×2 (22:34→22:36)
[2017-02-20] MEDS ORDERED: LOM PO (22:34)
[2017-02-20] MEDS ORDERED: COLD EEZE PO (22:34)
[2017-02-20 22:35] LABS: GLUCOSE, SERUM 112 MG/DL (60-99); POTASSIUM, SERUM 6.2 MMOL/L (3.5-5.3)
[2017-02-20] MEDS ORDERED: MINOCIN100 PO (22:35)
[2017-02-20] MEDS ORDERED: ZOFRAN4 PO (22:36)
[2017-02-20 22:37] LABS: LACTATE 0.6 MMOL/L (0.3-2.4)
[2017-02-20] MEDS ORDERED: PR25 PO (22:37)
[2017-02-20] MEDS ORDERED: PEPTO BISMOL262 MG PO (22:37)
[2017-02-20] MEDS ORDERED: ULTRAM50 PO (22:38)
[2017-02-20 22:39] LABS: PLATELET ESTIMATE ADQ (ADEQUATE)
[2017-02-20 22:51] LABS: PROCALCITONIN 0.45 ng/mL (<0.5)
[2017-02-20 23:00] LABS: INTERNATIONAL NORMAL RATI 1.1 UNITS (-); PARTIAL THROMBO TIME 35.4 SEC (22.5-37.2); PROTIME (NOT ORD) 14.5 SEC (12.0-14.5)
[2017-02-21 06:29] LABS: BUN (BLOOD UREA NITROGEN) 39 MG/DL (6-23); CALCIUM, SERUM 7.5 MG/DL (8.5-10.4); CHLORIDE, SERUM 110 MMOL/L (96-112); CO2 (CARBON DIOXIDE) 22 MMOL/L (24-34); CREATININE 1.73 MG/DL (0.70-1.30); GFR AFRICAN AMERICAN 41 ML/MIN (>=60); GFR NON AFRICAN AMERICAN 35 ML/MIN (>=60); POTASSIUM, SERUM 5.9 MMOL/L (3.5-5.3); SODIUM, SERUM 140 MMOL/L (135-148)
[2017-02-21 06:35] LABS: GLUCOSE, SERUM 111 MG/DL (60-99)
[2017-02-21 06:39] LABS: HEMOGLOBIN 7.1 g/dL (13.6-17.8); MEAN CORPUSCULAR HEMOGLOB 31.8 pg (26.0-34.0); MEAN CORPUSCULAR VOLUME 93.7 fL (80-100); MEAN PLATELET VOLUME 9.2 fL (9.2-13.0); PLATELET COUNT 156 10/3/uL (150-400); RBC DISTRIBUTION WIDTH 21.3 % (12.0-16.0); RED CELL COUNT 2.23 10/6/uL (4.7-6.1)
[2017-02-21 06:56] LABS: HEMATOCRIT 20.9 % (40.0-51.0); MANUAL DIFF YES %; WHITE BLOOD CELLS 1.6 10/3/uL (4.5-10.5)
[2017-02-21 08:19] LABS: PROCALCITONIN 0.66 ng/mL (<0.5)
[2017-02-21 09:35] LABS: LYMPHOCYTES 60 %; LYMPHOCYTES ABSOLUTE (CALC) 0.96 10/3/uL (0.67-4.30); MONOCYTES 3 %; MONOCYTES ABSOLUTE (CALC) 0.05 10/3/uL (0.21-1.20); NEUTROPHILS ABSOLUTE (CALC) 0.59 10/3/uL (2.02-8.40); PLATELET ESTIMATE ADQ (ADEQUATE); SEGMENTED NEUTROPHIL (0) 37 %; TOTAL NUCLEATED CELLS 100
[2017-02-21 09:36] LABS: ANISOCYTOSIS 1+ (5-10/OIF) (0-5/OIF)
[2017-02-21 10:11] LABS: TROPONIN I <0.02 NG/ML (<0.05)
[2017-02-21 14:19] LABS: POTASSIUM, SERUM 4.9 MMOL/L (3.5-5.3); TROPONIN I <0.02 NG/ML (<0.05)
[2017-02-21 14:55] LABS: HEMOGLOBIN 8.2 g/dL (13.6-17.8)
[2017-02-21 14:57] LABS: HEMATOCRIT 23.7 % (40.0-51.0)
[2017-02-22 03:29] LABS: HEMOGLOBIN 7.2 g/dL (13.6-17.8); MEAN CORPUS HGB CONC 34.4 g/dL (32.0-36.0); MEAN CORPUSCULAR HEMOGLOB 31.4 pg (26.0-34.0); MEAN CORPUSCULAR VOLUME 91.3 fL (80-100); MEAN PLATELET VOLUME 8.8 fL (9.2-13.0); PLATELET COUNT 136 10/3/uL (150-400); RBC DISTRIBUTION WIDTH 20.3 % (12.0-16.0); RED CELL COUNT 2.29 10/6/uL (4.7-6.1)
[2017-02-22 03:32] LABS: HEMATOCRIT 20.9 % (40.0-51.0); WHITE BLOOD CELLS 1.4 10/3/uL (4.5-10.5)
[2017-02-22 03:33] LABS: MANUAL DIFF YES %
[2017-02-22 03:41] LABS: CALCIUM, SERUM 7.4 MG/DL (8.5-10.4); CHLORIDE, SERUM 114 MMOL/L (96-112); CO2 (CARBON DIOXIDE) 25 MMOL/L (24-34); CREATININE 1.65 MG/DL (0.70-1.30); GFR AFRICAN AMERICAN 43 ML/MIN (>=60); GFR NON AFRICAN AMERICAN 37 ML/MIN (>=60); GLUCOSE, SERUM 129 MG/DL (60-99)
[2017-02-22 03:45] LABS: BUN (BLOOD UREA NITROGEN) 35 MG/DL (6-23); SODIUM, SERUM 147 MMOL/L (135-148)
[2017-02-22 03:57] LABS: ANISOCYTOSIS 1+ (5-10/OIF) (0-5/OIF); LYMPHOCYTES 59 %; LYMPHOCYTES ABSOLUTE (CALC) 0.83 10/3/uL (0.67-4.30); MONOCYTES 9 %; MONOCYTES ABSOLUTE (CALC) 0.13 10/3/uL (0.21-1.20); NEUTROPHILS ABSOLUTE (CALC) 0.44 10/3/uL (2.02-8.40); PLATELET ESTIMATE SLT DEC (ADEQUATE); SEGMENTED NEUTROPHIL (0) 31 %; TOTAL NUCLEATED CELLS 64
[2017-02-22 05:23] LABS: PROCALCITONIN 0.65 ng/mL (<0.5)
[2017-02-23 05:52] LABS: BUN (BLOOD UREA NITROGEN) 35 MG/DL (6-23); CALCIUM, SERUM 7.5 MG/DL (8.5-10.4); CHLORIDE, SERUM 117 MMOL/L (96-112); CO2 (CARBON DIOXIDE) 24 MMOL/L (24-34); CREATININE 1.59 MG/DL (0.70-1.30); GFR AFRICAN AMERICAN 45 ML/MIN (>=60); GFR NON AFRICAN AMERICAN 39 ML/MIN (>=60); GLUCOSE, SERUM 119 MG/DL (60-99); POTASSIUM, SERUM 3.3 MMOL/L (3.5-5.3); SODIUM, SERUM 150 MMOL/L (135-148)
[2017-02-23 05:53] LABS: MEAN CORPUS HGB CONC 35.3 g/dL (32.0-36.0); MEAN CORPUSCULAR HEMOGLOB 31.6 pg (26.0-34.0); MEAN CORPUSCULAR VOLUME 89.4 fL (80-100); MEAN PLATELET VOLUME 9.2 fL (9.2-13.0); PLATELET COUNT 163 10/3/uL (150-400)
[2017-02-23 05:57] LABS: HEMATOCRIT 26.9 % (40.0-51.0); HEMOGLOBIN 9.5 g/dL (13.6-17.8); RED CELL COUNT 3.01 10/6/uL (4.7-6.1); WHITE BLOOD CELLS 1.8 10/3/uL (4.5-10.5)
[2017-02-23 05:58] LABS: MANUAL DIFF YES %
[2017-02-23 06:06] LABS: LYMPHOCYTES 73 %; LYMPHOCYTES ABSOLUTE (CALC) 1.31 10/3/uL (0.67-4.30); MONOCYTES 10 %; MONOCYTES ABSOLUTE (CALC) 0.18 10/3/uL (0.21-1.20); NEUTROPHILS ABSOLUTE (CALC) 0.31 10/3/uL (2.02-8.40); PLATELET ESTIMATE ADQ (ADEQUATE); SEGMENTED NEUTROPHIL (0) 17 %; TOTAL NUCLEATED CELLS 100
[2017-02-24 06:22] LABS: BUN (BLOOD UREA NITROGEN) 35 MG/DL (6-23); CALCIUM, SERUM 7.8 MG/DL (8.5-10.4); CHLORIDE, SERUM 115 MMOL/L (96-112); CO2 (CARBON DIOXIDE) 22 MMOL/L (24-34); CREATININE 1.46 MG/DL (0.70-1.30); GFR AFRICAN AMERICAN 50 ML/MIN (>=60); GFR NON AFRICAN AMERICAN 43 ML/MIN (>=60); GLUCOSE, SERUM 97 MG/DL (60-99); POTASSIUM, SERUM 3.1 MMOL/L (3.5-5.3); SODIUM, SERUM 148 MMOL/L (135-148)
[2017-02-24 06:24] LABS: HEMATOCRIT 26.6 % (40.0-51.0); HEMOGLOBIN 9.3 g/dL (13.6-17.8); MEAN CORPUSCULAR HEMOGLOB 31.6 pg (26.0-34.0); MEAN CORPUSCULAR VOLUME 90.5 fL (80-100); MEAN PLATELET VOLUME 9.5 fL (9.2-13.0); NUCLEATED RED BLOOD CELLS 1.5 /100WBC (0-0); PLATELET COUNT 148 10/3/uL (150-400); RBC DISTRIBUTION WIDTH 19.3 % (12.0-16.0); RED CELL COUNT 2.94 10/6/uL (4.7-6.1)
[2017-02-24 06:31] LABS: MANUAL DIFF YES %
[2017-02-24 06:35] LABS: ANISOCYTOSIS 1+ (5-10/OIF) (0-5/OIF); BAND NEUTROPHILS 1 %; LYMPHOCYTES 72 %; LYMPHOCYTES ABSOLUTE (CALC) 2.16 10/3/uL (0.67-4.30); MONOCYTES 2 %; MONOCYTES ABSOLUTE (CALC) 0.06 10/3/uL (0.21-1.20); NEUTROPHILS ABSOLUTE (CALC) 0.78 10/3/uL (2.02-8.40); PLATELET ESTIMATE ADQ (ADEQUATE); SEGMENTED NEUTROPHIL (0) 25 %; TOTAL NUCLEATED CELLS 100
== END 2017-02-24 14:04 | disposition home or self-care (01) | DRG 841 ==
LOC: ER 20:34 → CDU1 23:59 → CDU2 02-21 02:36 → 1SO 02-21 15:24
PROVIDERS: Hospitalist; Internal Medicine; Nurse Practitioner Acute Care
PROC: 30233N1 Transfusion of Nonautologous Red Blood Cells into Peripheral Vein, Percutaneous Approach (ICD-10-PCS; principal; 2017-02-21)
DX: C83.30 Diffuse large B-cell lymphoma, unspecified site (principal); E87.0 Hyperosmolality and hypernatremia; N17.9 Acute kidney failure, unspecified; D61.818 Other pancytopenia; N39.0 Urinary tract infection, site not specified; N18.3 Chronic kidney disease, stage 3 (moderate); I49.5 Sick sinus syndrome; D63.0 Anemia in neoplastic disease; E87.5 Hyperkalemia; E87.6 Hypokalemia; E78.5 Hyperlipidemia, unspecified; I12.9 Hypertensive chronic kidney disease with stage 1 through stage 4 chronic kidney disease, or unspecified chronic kidney disease; I25.10 Atherosclerotic heart disease of native coronary artery without angina pectoris; I08.0 Rheumatic disorders of both mitral and aortic valves; B96.20 Unspecified Escherichia coli [E. coli] as the cause of diseases classified elsewhere; Z66 Do not resuscitate; I45.10 Unspecified right bundle-branch block; D63.8 Anemia in other chronic diseases classified elsewhere; D70.9 Neutropenia, unspecified; R50.81 Fever presenting with conditions classified elsewhere; E66.9 Obesity, unspecified; K21.9 Gastro-esophageal reflux disease without esophagitis; F41.8 Other specified anxiety disorders; Z85.46 Personal history of malignant neoplasm of prostate; Z79.82 Long term (current) use of aspirin; Z79.891 Long term (current) use of opiate analgesic; Z79.52 Long term (current) use of systemic steroids; Z79.899 Other long term (current) drug therapy; Z96.653 Presence of artificial knee joint, bilateral; Z88.8 Allergy status to other drugs, medicaments and biological substances
CPT/HCPCS: 36415; 36430; 71010; 80048; 80053; 81001; 82272; 83605; 83735; 84132; 84145; 84484; 85014; 85018; 85025; 85610; 85730; 86850; 86900; 86901; 86920; 87040; 93005; 93306; 94640; 96374; 96375; 99285; A9270-GY; J0360; J0610; J0692; J1720; J2405; P9040

== ENCOUNTER 2017-03-11 06:22 | Inpatient (IN) | payer MEDICARE, OTHER ==
--- NOTE | ~2017-03-11 | HP ---
History And Physical [place] [id number] [facility] [place]. [address] NAME: ANITA FITZPATRICK : 30 STATUS : ADM IN PAT#: [id number] AGE: 86 ADM/REG DATE : 03/11/17 MR#: [id number] REPORT SERV DATE: 03/11/17 DICTATED BY: REUBEN DOOLEY DATE: 03/11/17 REPORT STATUS : Draft TRANSCRIBED BY: MODL DATE: 03/11/17 DATE OF ADMISSION: 03/11/2017 ATTENDING PHYSICIAN: Dr. Morse. EXAMINING PHYSICIAN: Dr. Dooley. REASON FOR ADMISSION: Fever, chills, anemia, and leg swelling. HISTORY OF PRESENT ILLNESS: This is an 86, soon to be 87-year-old white male, who was followed by me extensively in the past. He has unfortunately developed a large cell leukemia. This is after over a year's history of chronic anemia with persistent transfusion requirement. He has been tried on three different chemotherapy agents including an unknown one, methotrexate, and now cyclosporine. He was having fever and chills with the cyclosporine and is now refusing to take that. He began having fever and chills. This is similar to the previous presentation. He had urinary tract infection with E. coli. He has frequent urination small amounts. He does have a history of prostate cancer. His creatinine is rising. There was concern over flow incontinence with postvoid residual increase. This will be checked on admission. He is followed by Dr. Neil Miller regarding the prostate cancer and had received Lupron injections when initially diagnosed with a very high PSA and a hard nodular prostate because he had an enlarged hard and nodular prostate. He is admitted for treatment of the urinary tract infection. I reviewed with him his POLST form. He desires further therapies however in the event of a natural , would not want to be placed on a ventilator or have chest compressions applied. PAST MEDICAL HISTORY: He previously had a cholecystectomy, bilateral knee joint replacements, and hernia repair. He did have an episode after the knee joint replacement where he articulated suicidal intention and was hospitalized under the care of Dr. Leandro Bo at [facility] for that. No further ideation problem has occurred. 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 He has chronic kidney disease but his creatinine last admission was 1.8 and now went up to 2.39. He does have a history of coronary artery disease, hypertension, and gastroesophageal reflux disease. History of colon resection following colon perforation after colonoscopy on 08/18/2015, with repair of large incisional hernia after that. History of deep venous thrombosis of right lower extremity. SOCIAL HISTORY: The patient is . 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 He does not smoke cigarettes or take any alcohol. Previously he attended [employer] but for the last several years, he has gone to [employer] [employer]. History And Physical [place] [address] [facility] [place]. [address] NAME: ANITA FITZPATRICK : 30 STATUS : ADM IN [facility]#: [id number] AGE: 86 ADM/REG DATE : 03/11/17 MR#: [id number] REPORT SERV DATE: 03/11/17 DICTATED BY: REUBEN DOOLEY DATE: 03/11/17 REPORT STATUS : Draft TRANSCRIBED BY: ROSHNI DATE: 03/11/17 He has had no cigarette or alcohol habit in the past. FAMILY HISTORY: His mother had complications of gallbladder disease and because of that. He did not know his father. He has siblings who have coronary artery disease. He has two daughters who suffer with obesity. He has one daughter who brought out his interest in the farm from the other children and he now lives at [facility]. REVIEW OF SYSTEMS: He feels hot and has had shaking chills that precipitated his trip back to [facility] here. His blood pressure has been elevated and clonidine was given earlier. He had nausea and vomiting. Previous blood pressure at 3:30 this morning was 215/110 with a heart rate of 100. He was sent to the emergency room for further evaluation. His blood pressure is now down to 134/60 with a heart rate of 90 but his respiratory rate is 30. He has had swelling of his lower extremities since his discharge from the hospital last two weeks ago. He blames the cyclosporine for this. He has had no melena, hematemesis, fits, seizures, convulsions, or unilateral weakness. He does have the nausea and vomiting and no diarrhea. He has had some constipation previously. HOME MEDICATIONS: 1. Acetaminophen 325 q.4 hours as needed. 2. Aspirin 81 mg p.o. daily. 3. Vitamin B complex 1 a day. 4. Calcium carbonate 500 mg at bedtime. 5. Clonidine 0.1 half tablet p.r.n. blood pressure greater than 180/90. 6. Cyclosporine he is taking twice a day and refuses any further treatment. 7. He is on Lexapro 20 mg p.o. daily for his depression. 8. He takes hydrocodone every 8 hours as needed. 9. Melatonin 5 mg each night. 10.Remeron 45 mg at bedtime. 11.Ondansetron as needed for nausea. 12.Pantoprazole. 13.Flomax. 14.He is also on Ambien at nighttime 5 mg. ALLERGIES: INCLUDE METHOTREXATE AND ANTIHISTAMINES THAT CAUSE SWELLING IN HIS PROSTATE. HE HAD A CHRONIC LIFELONG PROBLEM WITH ALLERGIC RHINITIS AND SEASONAL ALLERGIES. THE REMAINDER OF THE REVIEW OF SYSTEMS IS NEGATIVE. PHYSICAL EXAMINATION: GENERAL: Obese pale white male, in moderate distress. HEENT: EOMI. Sclerae clear. Conjunctivae pale. Lips and tongue are pale NECK: No bruit without any JVD. History And Physical [address] [address] NAME: ANITA FITZPATRICK : 30 STATUS : ADM IN [facility]#: [id number] AGE: 86 ADM/REG DATE : 03/11/17 MR#: [id number] REPORT SERV DATE: 03/11/17 DICTATED BY: REUBEN DOOLEY DATE: 03/11/17 REPORT STATUS : Draft TRANSCRIBED BY: ROSHNI DATE: 03/11/17 CHEST: Clear to A and P. HEART: Regular S1, S2 without any murmur, gallop, or click. ABDOMEN: Soft, obese, nontender. Bowel sounds positive, perhaps some fullness in the right upper quadrant, difficult to tell the level of obesity. EXTREMITIES: Have 4+ pitting edema. No distal pulses palpable. NEUROLOGIC: He does have sensation. He does withdraw to plantar stimulation. His infection control preventionist is equal and symmetric bilaterally. Coordination appears to be intact. He has no tremor. He is alert and oriented. Speech is cogent and goal directed. He appears to be in full capacity for decision making and answers appropriately. He is perfectly oriented to place and time and is able to give history. There are no other relatives with the patient here. SKIN: Without rash, ecchymosis, or bruising. He does have pallor. LYMPHATICS: I did not feel any lymphatics palpable. LABORATORY: EKG shows right bundle branch block with sinus tachycardia and left axis deviation. Portable chest x-ray was obtained that showed increasing right upper lobe consolidation, increased since the previous x-ray. BNP was 616. Previous ejection fraction during prior hospitalization 55%. His hemoglobin is 8.2, hematocrit 24.7, platelet count 185, white count was 2600, and 86% segs. Lactate 2.3. His potassium is 5.7 with a creatinine of 2.31, BUN of 44. His glucose is 166 with a calcium of 8.0. Blood cultures were obtained. Urinalysis showed 32 white cells per high-powered field, specific gravity 1.010, pH 7. ASSESSMENT: 1. Urinary tract infection. He does have some pyuria. This is likely persistent from previous treatment. He did have Escherichia coli previously. 2. Large cell leukemia with now third chemotherapy agents failure. He refuses further cyclosporine. 3. History of prostate cancer, treated with Lupron previously. 4. Adverse side effects to cyclosporine. 5. Hypertension. 6. Extreme leg edema may be related to poor nutrition and low albumin state. We will check albumin and pre-albumin. 7. Previous reaction to methotrexate and another chemotherapy therapeutic agent. 8. Acute renal failure. Creatinine rising from 1.8 to 2.32. 9. 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 10.Persistent transfusion requirement beginning around February 2016, emergent to leukemia. 11.Status post knee joint replacement. 12.Hypoxemia. 13.Left upper lobe infiltrate. BNP is elevated, may be a diastolic heart failure or suspect more consistent with pneumonia. We will change our treatment strategy to cover urinary tract infection but to include coverage for neutropenic pneumonia adding Zosyn. 14.Hyperkalemia secondary to the renal failure. 15.History of bradycardia with hypokalemia in the past. There was some consideration History And Physical [address] [address] NAME: ANITA FITZPATRICK : 30 STATUS : ADM IN [facility]#: [id number] AGE: 86 ADM/REG DATE : 03/11/17 MR#: [id number] REPORT SERV DATE: 03/11/17 DICTATED BY: REUBEN DOOLEY DATE: 03/11/17 REPORT STATUS : Draft TRANSCRIBED BY: MODL DATE: 03/11/17 given to the pacemaker. This prompted discussion with the patient's end-of-life wishes. He does not desire aggressive cardiopulmonary resuscitation end-of-life. He says he realizes his time here is short and would not want to have those discomforting procedures applied at the end of life. I will leave open for defibrillation and medication to treat life-threatening arrhythmias or hemodynamic deterioration such as the hypertension has been treated on admission though when he returns to [place], he will return with a Do Not Resuscitate order. I reviewed his POLST form from 2013, he resends, section A. DB/MODL Reuben Dooley M.D. / [id number] CC: MD Gui Raphael NP Mark S Womack IV, M.D. Oliver Benton III, M.D.
--- NOTE | ~2017-03-11 | DS ---
Discharge Summary [facility] [address] [facility] [place]. [address] NAME: ANITA FITZPATRICK : 30 STATUS : DIS IN PAT#: [id number] AGE: 86 ADM/REG DATE : 03/11/17 MR#: [id number] REPORT SERV DATE: 03/16/17 DICTATED BY: JORGE RAMOS II DATE: 03/15/17 REPORT STATUS : Draft TRANSCRIBED BY: MODL DATE: 03/15/17 ADMISSION DATE: 03/11/2017 DISCHARGE DATE: 03/15/2017 DISCHARGE DIAGNOSES: 1. UTI secondary E. coli. 2. Large cell leukemia. 3. 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 4. CHRISTIANO on chronic kidney disease stage III. 5. Chronic lymphedema. 6. Hyperkalemia. CONSULT: Dr. Mccord with [facility]. BRIEF HISTORY OF PRESENT ILLNESS: The patient is an 86-year-old male with the above history who presented to [facility] due to fever, chills, and anemia. For detailed history and physical examination, please see Dr. Kan's note from 02/19/2017. HOSPITAL COURSE: On admission, the patient had a UA showing 32 white cells and small leukocyte esterase. Chest x-ray also showed a small opacity in the right upper lobe concerning for possible pneumonia. His white count was 2.6 on admission, and he was afebrile. He was initially started on Zosyn to cover UTI and questionable pneumonia. Urine culture came back with E. coli, and the patient is not hypoxic and his lungs are completely clear, so doubt significant component of pneumonia. At this point, we will change him over to Duricef for 10 days total. Otherwise, his hemoglobins have been fairly stable except it was 6.9 once and was transfused. Currently hanging about 7.3. He does have some chronic lower extremity edema, which is stable and worse on the right, minimal on the left. Also, his creatinine was 2.3 on admission, which has trended down to 1.9. At this point, he is stable for discharge back to his assisted living facility. Dr. Mccord will continue to follow as an outpatient. DISCHARGE MEDICATIONS: 1. Aspirin 81 mg p.o. daily. 2. Tums 1000 mg p.o. at bedtime. 3. Duricef 500 mg p.o. b.i.d. x7 days. 4. Melatonin 5 mg p.o. at bedtime. 5. Remeron 45 mg p.o. at bedtime. 6. Protonix 40 mg p.o. daily. 7. Flomax 0.4 mg p.o. daily. 8. Vitamin B complex daily. 9. Ambien 5 mg p.o. at bedtime. 10.Tylenol p.r.n. 11.[place] 5/325 mg p.o. q.8 hours p.r.n. 12.Zofran p.r.n. 13.Tramadol 50 mg p.o. q.6 hours p.r.n. 14.Clonidine 0.5 mg p.o. daily p.r.n. systolic greater than 180. Discharge Summary [address] [address] NAME: ANITA FITZPATRICK : 30 STATUS : DIS IN PAT#: [id number] AGE: 86 ADM/REG DATE : 03/11/17 MR#: [id number] REPORT SERV DATE: 03/16/17 DICTATED BY: JORGE RAMOS II DATE: 03/15/17 REPORT STATUS : Draft TRANSCRIBED BY: ROSHNI DATE: 03/15/17 DISCHARGE INSTRUCTIONS: The patient will follow up with Dr. Mccord in 1-2 weeks. MANI/ROSHNI Jorge Ramos II, MD / [id number] CC: MD Gui Del Cid II, NP
[~2017-03-11 06:22] MED LIST changes: +COLD EEZE PO; +LOM PO; +NORCO1 TA1 PO; +REMERON45 MG PO; +VITAMIN B PO; +ZOFRAN4 PO
[2017-03-11 06:26] LABS: ER CBC TAT 0 Hrs 12 Mins; HEMATOCRIT 24.7 % (40.0-51.0); HEMOGLOBIN 8.2 g/dL (13.6-17.8); MEAN PLATELET VOLUME 9.3 fL (9.2-13.0); PLATELET COUNT 185 10/3/uL (150-400); RBC DISTRIBUTION WIDTH 22.1 % (12.0-16.0); RED CELL COUNT 2.56 10/6/uL (4.7-6.1); WHITE BLOOD CELLS 2.6 10/3/uL (4.5-10.5)
[2017-03-11 06:29] LABS: MANUAL DIFF YES %; MEAN CORPUS HGB CONC 33.2 g/dL (32.0-36.0); MEAN CORPUSCULAR VOLUME 96.5 fL (80-100)
[2017-03-11 06:29] LABS: ASCORBIC ACID (UR NOT ORDER) NEG (NEG); BILIRUBIN, URINE NEGATIVE (NEG); ER URINALYSIS TAT 0 Hrs 15 Mins; KETONE, URINE NEGATIVE (NEG); LEUKOCYTE ESTERASE(NOT OR SMALL (NEG); WBC (NOT ORDERED) (RFLEX) 32 (0-5)
[2017-03-11 06:30] LABS: NITRITE (URINE) NEG (NEG)
[2017-03-11 06:34] LABS: CHLORIDE, SERUM 111 MMOL/L (96-112); CO2 (CARBON DIOXIDE) 22 MMOL/L (24-34)
[2017-03-11 06:35] LABS: BUN (BLOOD UREA NITROGEN) 44 MG/DL (6-23); CREATININE 2.31 MG/DL (0.70-1.30); GFR AFRICAN AMERICAN 29 ML/MIN (>=60); GFR NON AFRICAN AMERICAN 25 ML/MIN (>=60); GLUCOSE, SERUM 166 MG/DL (60-99); POTASSIUM, SERUM 5.7 MMOL/L (3.5-5.3); SODIUM, SERUM 140 MMOL/L (135-148)
[2017-03-11 06:41] LABS: LACTATE 2.3 MMOL/L (0.3-2.4)
[2017-03-11 07:05] LABS: BAND NEUTROPHILS 4 %; ER DIFF TAT 0 Hrs 51 Mins; LYMPHOCYTES 10 %; LYMPHOCYTES ABSOLUTE (CALC) 0.26 10/3/uL (0.67-4.30); NEUTROPHILS ABSOLUTE (CALC) 2.34 10/3/uL (2.02-8.40); SEGMENTED NEUTROPHIL (0) 86 %; TOTAL NUCLEATED CELLS 100
[2017-03-11 07:06] LABS: PLATELET ESTIMATE ADQ (ADEQUATE); RBC MORPHOLOGY NORM (NORMAL)
[2017-03-11] MEDS ORDERED: CYCLOSPORINE25 MG PO (08:47)
[2017-03-11] MEDS ORDERED: MUCINEX600 MG PO (08:49)
[2017-03-11] MEDS ORDERED: CAT1 PO (08:52)
[2017-03-11] MEDS ORDERED: LOM PO (08:54)
[2017-03-11 10:40] LABS: PROCALCITONIN 0.16 ng/mL (<0.5)
[2017-03-11 12:26] LABS: ALBUMIN 2.9 G/DL (3.5-5.0); ALKALINE PHOSPHATASE 102 U/L (45-117); DIRECT BILIRUBIN 0.3 MG/DL (0.0-0.4); INDIRECT BILIRUBIN(NOT ORDER) 0.4 MG/DL (0.1-0.9); PREALBUMIN 22.3 MG/DL (17.0-43.0); SGOT(AST) 21 U/L (5-40); SGPT(ALT) 22 U/L (5-65); TOTAL BILIRUBIN 0.7 MG/DL (0-1.2); TOTAL PROTEIN 7.3 G/DL (6.0-8.5)
[2017-03-12 01:55] LABS: BASOPHILS 0 %; EOSINOPHILS 0.2 %; EOSINOPHILS ABSOLUTE 0.01 10/3/uL (0.0-0.53); LYMPHOCYTES 70.4 %; LYMPHOCYTES ABSOLUTE 3.93 10/3/uL (0.67-4.30); MEAN CORPUSCULAR HEMOGLOB 31.8 pg (26.0-34.0); MEAN CORPUSCULAR VOLUME 96.3 fL (80-100); MEAN PLATELET VOLUME 9.7 fL (9.2-13.0); MONOCYTES 6.5 %; MONOCYTES ABSOLUTE 0.36 10/3/uL (0.21-1.20); NEUTROPHILS 22.9 %; NEUTROPHILS ABSOLUTE 1.28 10/3/uL (2.02-8.40); RBC DISTRIBUTION WIDTH 22.5 % (12.0-16.0); RED CELL COUNT 2.17 10/6/uL (4.7-6.1)
[2017-03-12 01:57] LABS: HEMATOCRIT 20.9 % (40.0-51.0); HEMOGLOBIN 6.9 g/dL (13.6-17.8); WHITE BLOOD CELLS 5.6 10/3/uL (4.5-10.5)
[2017-03-12 01:58] LABS: MANUAL DIFF NO %; PLATELET COUNT 126 10/3/uL (150-400)
[2017-03-12 02:09] LABS: CHLORIDE, SERUM 113 MMOL/L (96-112); CO2 (CARBON DIOXIDE) 24 MMOL/L (24-34); CREATININE 2.38 MG/DL (0.70-1.30); GFR AFRICAN AMERICAN 28 ML/MIN (>=60); GFR NON AFRICAN AMERICAN 24 ML/MIN (>=60); POTASSIUM, SERUM 5.4 MMOL/L (3.5-5.3); SODIUM, SERUM 145 MMOL/L (135-148)
[2017-03-12 02:13] LABS: PLATELET ESTIMATE SLT DEC (ADEQUATE); RBC MORPHOLOGY ABN (NORMAL)
[2017-03-12 02:17] LABS: BUN (BLOOD UREA NITROGEN) 48 MG/DL (6-23); GLUCOSE, SERUM 89 MG/DL (60-99)
[2017-03-13 07:00] LABS: HEMOGLOBIN 7.9 g/dL (13.6-17.8); MEAN CORPUS HGB CONC 34.2 g/dL (32.0-36.0); MEAN CORPUSCULAR HEMOGLOB 32.1 pg (26.0-34.0); MEAN CORPUSCULAR VOLUME 93.9 fL (80-100); MEAN PLATELET VOLUME 9.3 fL (9.2-13.0); PLATELET COUNT 122 10/3/uL (150-400); RBC DISTRIBUTION WIDTH 22.1 % (12.0-16.0); RED CELL COUNT 2.46 10/6/uL (4.7-6.1)
[2017-03-13 07:01] LABS: HEMATOCRIT 23.1 % (40.0-51.0); WHITE BLOOD CELLS 3.2 10/3/uL (4.5-10.5)
[2017-03-13 07:02] LABS: MANUAL DIFF YES %
[2017-03-13 07:11] LABS: BUN (BLOOD UREA NITROGEN) 47 MG/DL (6-23); CALCIUM, SERUM 7.9 MG/DL (8.5-10.4); CHLORIDE, SERUM 113 MMOL/L (96-112); CO2 (CARBON DIOXIDE) 22 MMOL/L (24-34); CREATININE 2.43 MG/DL (0.70-1.30); GFR AFRICAN AMERICAN 27 ML/MIN (>=60); GFR NON AFRICAN AMERICAN 23 ML/MIN (>=60); GLUCOSE, SERUM 83 MG/DL (60-99); POTASSIUM, SERUM 5.2 MMOL/L (3.5-5.3); SODIUM, SERUM 142 MMOL/L (135-148)
[2017-03-13 07:39] LABS: BAND NEUTROPHILS 1 %; LYMPHOCYTES 67 %; LYMPHOCYTES ABSOLUTE (CALC) 2.14 10/3/uL (0.67-4.30); MONOCYTES 8 %; MONOCYTES ABSOLUTE (CALC) 0.26 10/3/uL (0.21-1.20); SEGMENTED NEUTROPHIL (0) 24 %; TOTAL NUCLEATED CELLS 100
[2017-03-13 07:41] LABS: PLATELET ESTIMATE SLT DEC (ADEQUATE)
[2017-03-13 17:58] LABS: CREATININE, URINE 62.2 MG/DL
[2017-03-14 06:55] LABS: HEMATOCRIT 21.9 % (40.0-51.0); HEMOGLOBIN 7.3 g/dL (13.6-17.8); MANUAL DIFF YES %; MEAN CORPUS HGB CONC 33.3 g/dL (32.0-36.0); MEAN CORPUSCULAR HEMOGLOB 31.6 pg (26.0-34.0); MEAN CORPUSCULAR VOLUME 94.8 fL (80-100); MEAN PLATELET VOLUME 10.4 fL (9.2-13.0); PLATELET COUNT 159 10/3/uL (150-400); RBC DISTRIBUTION WIDTH 21.6 % (12.0-16.0); RED CELL COUNT 2.31 10/6/uL (4.7-6.1); WHITE BLOOD CELLS 2.7 10/3/uL (4.5-10.5)
[2017-03-14 07:05] LABS: CALCIUM, SERUM 8.2 MG/DL (8.5-10.4); CHLORIDE, SERUM 116 MMOL/L (96-112); CO2 (CARBON DIOXIDE) 23 MMOL/L (24-34); CREATININE 2.23 MG/DL (0.70-1.30); GFR AFRICAN AMERICAN 30 ML/MIN (>=60); GFR NON AFRICAN AMERICAN 26 ML/MIN (>=60); GLUCOSE, SERUM 84 MG/DL (60-99); POTASSIUM, SERUM 5.1 MMOL/L (3.5-5.3); SODIUM, SERUM 144 MMOL/L (135-148)
[2017-03-14 07:06] LABS: BUN (BLOOD UREA NITROGEN) 42 MG/DL (6-23)
[2017-03-14 07:16] LABS: EOSINOPHILS 2 %; EOSINOPHILS ABSOLUTE (CALC) 0.05 10/3/uL (0.0-0.53); LYMPHOCYTES 77 %; LYMPHOCYTES ABSOLUTE (CALC) 2.08 10/3/uL (0.67-4.30); NEUTROPHILS ABSOLUTE (CALC) 0.57 10/3/uL (2.02-8.40); PLATELET ESTIMATE ADQ (ADEQUATE); SEGMENTED NEUTROPHIL (0) 21 %; TOTAL NUCLEATED CELLS 100
[2017-03-15 05:28] LABS: BUN (BLOOD UREA NITROGEN) 35 MG/DL (6-23); CHLORIDE, SERUM 118 MMOL/L (96-112); CO2 (CARBON DIOXIDE) 21 MMOL/L (24-34); CREATININE 1.93 MG/DL (0.70-1.30); GFR AFRICAN AMERICAN 36 ML/MIN (>=60); GFR NON AFRICAN AMERICAN 31 ML/MIN (>=60); GLUCOSE, SERUM 86 MG/DL (60-99); POTASSIUM, SERUM 5.3 MMOL/L (3.5-5.3); SODIUM, SERUM 146 MMOL/L (135-148)
[2017-03-15] MEDS ORDERED: DURICEF PO (17:03)
== END 2017-03-15 17:30 | disposition home or self-care (01) | DRG 683 ==
LOC: ER 06:22 → ER/OF 10:20 → 2SO 12:40
PROVIDERS: Emergency Medicine; Hospitalist; Internal Medicine; Nurse Practitioner Adult Health
PROC: 30233N1 Transfusion of Nonautologous Red Blood Cells into Peripheral Vein, Percutaneous Approach (ICD-10-PCS; principal; 2017-03-12)
DX: N17.9 Acute kidney failure, unspecified (principal); C94.80 Other specified leukemias not having achieved remission; N39.0 Urinary tract infection, site not specified; I13.0 Hypertensive heart and chronic kidney disease with heart failure and stage 1 through stage 4 chronic kidney disease, or unspecified chronic kidney disease; E87.5 Hyperkalemia; I50.9 Heart failure, unspecified; B96.20 Unspecified Escherichia coli [E. coli] as the cause of diseases classified elsewhere; D64.81 Anemia due to antineoplastic chemotherapy; N18.3 Chronic kidney disease, stage 3 (moderate); Z66 Do not resuscitate; I25.10 Atherosclerotic heart disease of native coronary artery without angina pectoris; K21.9 Gastro-esophageal reflux disease without esophagitis; I89.0 Lymphedema, not elsewhere classified; I45.10 Unspecified right bundle-branch block; F41.8 Other specified anxiety disorders; T45.1X5A Adverse effect of antineoplastic and immunosuppressive drugs, initial encounter; Z79.899 Other long term (current) drug therapy; Z79.891 Long term (current) use of opiate analgesic; Z92.21 Personal history of antineoplastic chemotherapy; Z85.46 Personal history of malignant neoplasm of prostate; Z96.653 Presence of artificial knee joint, bilateral; Z90.49 Acquired absence of other specified parts of digestive tract; Z86.718 Personal history of other venous thrombosis and embolism; Z79.82 Long term (current) use of aspirin; Z88.8 Allergy status to other drugs, medicaments and biological substances
CPT/HCPCS: 36415; 71010; 76775; 80048; 80076; 81001; 82570; 83605; 83735; 83880; 84134; 84145; 84300; 85025; 86850; 86900; 86901; 86920; 87040; 87077; 87086; 87186; 93005; 96374; 97161-GP; 99285; A9270-GY; G8978-CH-GP; G8979-CH-GP; G8980-CH-GP; J2543; J2550; P9040